=== PATIENT | female | born 2005 | race Caucasian/White ===

== ENCOUNTER 2023-09-26 06:25 | Emergency (ER) | payer BC, SELFPAY ==
[2023-09-26 06:28] VITALS: BP 120/80
--- NOTE | 2023-09-26 06:48 | ED.GENMED ---
History of Present Illness
General
Chief Complaint: Flank Pain
Source: patient
Exam Limitations: none
Time Seen by Provider: 09/26/23 06:32
Nursing documentation reviewed up to this point in time: agreed with
History of Present Illness
History of Present Illness:
18-year-old female with past medical history of kidney stones presents to the emergency room for evaluation of left flank pain from known kidney stone. Patient reports that she started having flank pain on the left side 2 days ago and symptoms have
been consistent although waxing and waning in intensity since then�symptoms occasionally becoming quite severe. She reports pain in the left flank that radiates towards the left lower abdomen. Associated with nausea and vomiting. She denies any
fevers or chills. She denies any dysuria or change in frequency. She denies any other complaints. She says that she was seen at [facility] in the emergency room shortly after onset of symptoms 2 days ago and had a CT scan of the
abdomen pelvis which showed a 2 mm obstructive kidney stone on the left. She says that she was prescribed Flomax and told to take Tylenol as needed which she has been doing without adequate pain control which prompted her to come to the emergency
room this morning.
Review of Systems
Review of Systems
All Other Systems: ROS reviewed and negative except as documented in HPI and ROS
Constitutional: Denies fever or chills
Respiratory: Denies trouble breathing
Cardiac: Denies chest pain
ABD/GI: Reports nausea and vomiting; Denies abdominal pain
: Reports flank pain; Denies dysuria, frequency or bleeding
Musculoskeletal: Denies neck pain or back pain
Neurological: Denies headache
Phy Exam
Physical Exam
Physical Exam:
General: Awake, alert; no acute distress
Head: Normocephalic, atraumatic
Eyes: Conjunctiva normal, sclera anicteric
Throat: Airway intact, moist mucous membranes
Neck: Trachea midline
Lungs: Clear to auscultation bilaterally, no wheezing, rales, rhonchi
Heart: Regular rate and rhythm, no murmurs, gallops, or rubs
Abd: Soft, non distended, nontender
Back: No CVA tenderness
Neuro: No gross deficits
Skin: no rash
Extremities: Warm well-perfused
Scores
Heart Failure Risk
Heart Failure Risk Score: Not Applicable
Heart Score for Chest Pain Patients
STEMI patient?: Not applicable
Withdrawal Assessment of Alcohol
Withdrawal Assessment Completed?: Not applicable
Course
Orders/Labs/Results
Orders:
Orders
09/26/23 06:33
Test Result ONCE
09/26/23 06:47
Ketorolac [Toradol] 15 mg IV NOW STA
US Renal Only W/O Bladder Urgent
Comment:
Reason For Exam: L flank pain, kidney stone
09/26/23 06:57
Basic Metabolic Panel Urgent
Complete Blood Count/With Diff Urgent
09/26/23 06:59
HCG, Urine Qualitative Screen Urgent
Date Specimen was Collected: 09/26/23
Time Specimen was Collected: 06:58
Urinalysis Reflex To Culture Urgent
Date Specimen was Collected: 09/26/23
Time Specimen was Collected: 06:58
Urine Microscopic Reflex Cult Urgent
Abnormal Lab Results
09/26/2324
06:57 06:59
RBC 4.14 L 10^6/uL
(4.20-5.40)
Hgb 8.8 L g/dL
(12.0-16.0)
Hct 29.0 L %
(37.0-47.0)
MCV 70.0 L fL
(81.0-99.0)
MCH 21.3 L pg
(27.0-31.0)
MCHC 30.3 L g/dL
(33.0-37.0)
RDW 17.0 H %
(11.5-14.5)
Urine Ketones Trace A
(Negative)
Ur Occult Blood Reflex 4+ A
(Negative)
Leukocyte Esterase Rfl Trace A
(Negative)
Urine RBC 30-40 A /HPF
(0-2)
Urine Bacteria (Reflex) Few A
(Negative)
09/26/23 06:57
09/26/23 06:57
Vital Signs
Initial and Last Documented VS:
Initial Vital Signs
Temp Pulse Resp BP Pulse Ox
36.8 C 63 17 120/80 100
09/26/23 06:28 09/26/23 06:28 09/26/23 06:28 09/26/23 06:28 09/26/23 06:28
Last Documented Vital Signs
Temp Pulse Resp BP Pulse Ox
36.8 C 63 17 120/80 100
09/26/23 06:28 09/26/23 06:28 09/26/23 06:28 09/26/23 06:28 09/26/23 06:28
MDM/Problems Addressed
Differential Diagnosis Includes:
Kidney stone
MDM/Problems Addressed:
18-year-old female presents to the emergency room with uncontrolled pain from kidney stone diagnosed on CT 2 days ago at outside hospital. She has had nausea and vomiting which she says is controlled with Zofran, has been taking Tylenol without
adequate pain control. She is also on Flomax prescribed 2 days ago. Vital signs are normal. Exam as above. Will check renal function, urinalysis to rule out infection. Will check renal ultrasound for completeness to evaluate for significant
hydronephrosis. Hold on repeat CT scan with patient having had one 2 days ago. With reported 2 mm stone on recent CT suspect likely will pass. I spoke to her about pain control will start with Toradol here advised that she can add Motrin to her
pain control regimen at home and can prescribe medication for breakthrough pain as needed.
Initial labs reviewed: CBC shows no leukocytosis, anemia to 8.8 which is apparently chronic issue. CMP unremarkable shows acceptable renal function. Urinalysis negative for infection. Call placed to [facility] and discussed patient's
case: they were able to confirm that she was diagnosed with left sided kidney stone 2mm. I also confirmed that she had anemia there with a hemoglobin of 9.7. We are currently awaiting results of patient's renal ultrasound here.
Ultrasound here shows mild hydronephrosis on the left. Patient's pain was reasonably controlled with Toradol here. I had a long discussion with the patient about pain control regimen�advised to continue Tylenol, add Motrin at baseline will
prescribe oxycodone only to use as needed for severe pain. Advised to drink plenty of fluids and strain urine and she will continue Flomax as previously prescribed. Will provide urology referral for outpatient follow-up. She feels comfortable
with this plan. Spoke about return precautions all questions answered.
*Radiology
Radiology exam reviewed: radiology read reviewed
*Pulse Oximetry
Patient hypoxic: no
*Critical Care Note
Total Time (30-74mins, 75-104mins- exclusive of procedures): Not Applicable
Data Reviewed
Review of Other/Old Records Reveals: Other (Queried PDMP-no controlled substances prescribed in the past calendar year)
Source: patient
ED Attending Note
-
Portions of this chart may have been created with voice recognition software.� Occasional wrong word or��sound alike� substitutions may have occurred due to the inherent limitations of voice recognition software.
Discharge Plan
Departure
Patient Disposition: Home (Routine Discharge)
Date of Disposition: 09/26/23
Time of Disposition: 08:10
Patient with high blood pressure during this ER visit?: No
Discharge Problem:
Left nephrolithiasis, Anemia
Instructions: Anemia caused by low iron, Kidney Stones (DC)
Prescriptions:
New
oxycodone 5 mg tablet
5 mg PO Q8H PRN (Reason: Pain) Qty: 10 0RF
Referrals:
PRIVATE,PHYSICIAN [Family Provider] -
Leonard Reyna Jr., MD [Active] - Call in 1-3 days for appt
Activity Restrictions/Additional Instructions:
Thank you for visiting the Emergency Department at [facility].
1. Please schedule a follow up appointment as directed. Call first thing tomorrow morning to make an appointment.
2. If indicated, please take your medications as instructed and indicated on discharge paperwork.
3. If any of your symptoms do not improve, or persist, or become more severe within 6-12 hours, please return to the emergency department for further care.
4. Please return to the emergency department if you develop a headache, neck pain/stiffness, fever greater than 100.4F, chest pain, shortness of breath, persistent nausea, vomiting, slurred speech, difficulty walking, numbness/tingling, weakness,
signs of infection or any other symptoms that are worrisome to you.
Please call [phone] if you have any questions.
Interventions
Interventions:
*Risk Screen - Suicide Last Done: 09/26/23 06:28
*General Assessment Last Done: 09/26/23 06:28
*Neglect/Abuse Screening Last Done: 09/26/23 06:28
ED- Fall Risk Assessment Last Done: 09/26/23 06:28
*ED COVID-19 Vaccine History Last Done: 09/26/23 06:28
Discharge Date and Time
Print Language: KAZAKH
[2023-09-26 06:53] VITALS: BMI 54.0
[2023-09-26] MEDS: TORADOL 15 MG IV (06:57)
[2023-09-26 07:14] LABS: Urine Albumin Trace (Neg - Trace); Urine Bilirubin Negative (Negative); Urine Character Slightly Cloudy (Clear); Urine Color Yellow; Urine Glucose Negative (Negative); Urine Ketone Trace (Negative); Urine Leukocyte Trace (Negative); Urine Nitrite Negative (Negative); Urine Occult Blood 4+ (Negative); Urine Urobilinogen Negative (Neg - 1+)
[2023-09-26 07:17] LABS: % Basophils 0.3 % (0-2); % Eosinophils 3.3 % (0-6); % Immature Granulocytes 0.3 % (0-0.5); % Lymphocytes 34.4 % (20.5-51.1); % Monocytes 6.3 % (1.7-9.3); % Neutrophils 55.4 % (42.2-75.2); Absolute Eosinophils 0.3 10^3/uL (0-0.7); Absolute Lymphocytes 3.2 10^3/uL (1.2-3.4); Absolute Monocytes 0.6 10^3/uL (0.1-0.6); Absolute Neutrophils 5.2 10^3/uL (1.4-6.5); Hemoglobin 8.8 g/dL (12.0-16.0); Mean Corp Hgb Conc. 30.3 g/dL (33.0-37.0); Mean Corpuscular Hgb 21.3 pg (27.0-31.0); Mean Platelet Volume 8.3 fL (7.4-10.4); Nucleated Red Blood Cells % 0 %; Platelet Count 366 10^3/uL (130-400); Red Blood Cell Count 4.14 10^6/uL (4.20-5.40); White Blood Cell Count 9.4 10^3/uL (4.8-10.8)
[2023-09-26 07:18] LABS: HCG, Urine Qualitative Screen Negative
[2023-09-26 07:25] LABS: Blood Urea Nitrogen 14 mg/dl (7-17); Calcium 9.1 mg/dl (8.4-10.2); Carbon Dioxide 25 mmol/L (22-30); Chloride 107 mmol/L (98-107); Estimated Creatinine Clearance > 125 ml/min; Glucose 97 mg/dl (70-99); Potassium 4.2 mmol/L (3.5-5.1); Sodium 141 mmol/L (135-145); eGFR > 60.00
[2023-09-26 07:34] LABS: Urine Squamous Cell 16-20 /LPF (Few)
[2023-09-26 07:35] LABS: Urine Red Blood Cell 30-40 /HPF (0-2)
[2023-09-26 07:37] LABS: Urine Bacteria Few (Negative)
[2023-09-26 08:00] VITALS: BP 118/73
== END 2023-09-26 08:46 | disposition home or self-care (01) ==
LOC: EMR 06:25
PROVIDERS: EMERGENCY PHYSICIAN Emergency Medicine
DX: N13.2 Hydronephrosis with renal and ureteral calculous obstruction (principal); D64.9 Anemia, unspecified
CPT/HCPCS: 99284; 96374; 76775; 80048; 81003; 81015; 81025; 85025